=== PATIENT | male | born 1970 | race Two or more races ===

== ENCOUNTER → 2020-08-08 | Outpatient (CLI) | payer OTHER | END | disposition home or self-care (01) | LOC: PPH VACUNA | DX: Z23 Encounter for immunization (principal) ==

== ENCOUNTER 2024-12-17 12:58 | Emergency (ER) | payer OTHER ==
[~2024-12-17] VITALS: Ht 177.8 cm; Wt 96.6 kg
[2024-12-17] MEDS ORDERED: LOSARTAN POTAS100 MG PO (15:26)
[2024-12-17] MEDS ORDERED: SYNTHROID150 MCG PO (15:26)
[2024-12-17 15:42] LABS: BASO % 0.6 % (0.1-1.2); EOS # 0.08 (0.04-0.54); EOS % 0.9 % (0.7-7.0); LYMPH # 2.19 (1.18-3.74); LYMPH % 25.9 % (19.3-53.1); MEAN PLATELET VOLUME 11.00 fl (9.4-12.4); MONO # 0.64 (0.24-0.82); MONO % 7.6 % (4.7-12.5); NEUT # 5.48 (1.56-6.13); NEUT % 64.9 % (34.0-71.1); RED CELL DISTRIBUTION WIDTH 12.4 % (11.6-14.4)
[2024-12-17 16:06] LABS: INR 1.0
[2024-12-17 16:15] LABS: URINE APPEARANCE Clear; URINE BILIRRUBIN Negative (NEGATIVE); URINE BLOOD Negative; URINE COLOR Yellow; URINE GLUCOSE Negative (NEGATIVE); URINE KETONE Negative (NEGATIVE); URINE LEUKOCYTE Negative; URINE NITRATE Negative; URINE PROTEIN Negative (NEGATIVE); URINE UROBILINOGEN 0.2 E.U./dl
[2024-12-17 16:25] LABS: ALT/SGPT 33.0 U/L (12-78); AST/SGOT 15.0 U/L (15-37); BILIRUBIN TOTAL 0.49 mg/dL (0.3-1.2); BUN CREA RATIO 15.0 (7.0-25.0); CREATININE SERUM 1.04 mg/dL (0.70-1.30); GFR 74.42; GLOBULINA 3.6 G/DL (2.4-3.5); GLUCOSE FASTING 111.0 mg/dL (65-100); OSMOLALITY SERUM 283.0 MOSM/KG (275-295)
[2024-12-17 16:32] LABS: COVID-19 AG NEGATIVE (NEGATIVE)
[2024-12-17 16:37] LABS: URINE BACTERIA 2.3 uL (0.0-1933); URINE CAST 0.00 uL (0.0-1.40); URINE EPITHELIAL CELLS 0.3 uL (0.0-38.8); URINE RBC 1.1 uL (0.0-20.8); URINE WBC 1.0 uL (0.0-23.2)
[2024-12-17] MEDS ORDERED: KETOROLAC TROMETHAMINE 30 MG VIAL ONE (19:30)
[2024-12-17] MEDS ORDERED: KETOROLAC TROMETHAMINE 30 MG VIAL IV ONE (19:30)
== END 2024-12-17 20:00 ==
LOC: ER 13:17
PROVIDERS: Emergency Medicine
DX: R07.89 Other chest pain (principal); M94.0 Chondrocostal junction syndrome [Tietze]; R05.9 Cough, unspecified; R51.9 Headache, unspecified; Z20.822 Contact with and (suspected) exposure to COVID-19; I10 Essential (primary) hypertension; E03.8 Other specified hypothyroidism